=== PATIENT | male | born 1950 | race Caucasian/White ===

== ENCOUNTER 2016-10-04 08:56 | Day surgery (SDC) | payer MEDICARE ==
[~2016-10-04 08:56] MED LIST: PROPOFOL INJ 200 MG/20 ML VIAL IV ONE
[2016-10-04 10:37] VITALS: BP 135/84
--- NOTE | 2016-10-04 12:33 | Operative Report ---
Operative Report DATE OF SURGERY: 10/04/16 Operative Report: The risks, benefits and alternatives of the procedure including risks of bleeding, perforation requiring surgery are explained to the patient detail and informed consent is obtained. Patient is placed in a left, lateral decubital position. A rectal examination was done which did not reveal any masses tears or fissures. Timeout is called. Propofol medications administered. An Olympus videoscope was inserted into the patient's rectum. Scope was then gradually advanced all the way to cecum. The cecum was identified by the usual anatomical landmarks of the ileocecal valve as well as the appendiceal office. Photodocumentation was obtained. Prep is good. The scope was then sequentially pulled back via the various segments of the colon including the ascending colon, hepatic flexure, transverse colon, splenic flexure, descending colon and finally into the rectosigmoid portions of the colon. Retroflexion maneuvers performed. PREOPERATIVE DIAGNOSIS: Colorectal cancer screening. POSTOPERATIVE DIAGNOSIS: Colon polyp in the sigmoid area, removed via snare polypectomy, polyp retrieved. Diverticulosis without any evidence of diverticulitis, mainly located in the left side of the colon. Internal hemorrhoids OPERATION: Colonoscopy with snare polypectomy SURGEON: ADAM HAYNES ANESTHESIA: LMAC TISSUE REMOVED OR ALTERED: Polyp retrieved. COMPLICATIONS: None. ESTIMATED BLOOD LOSS: none. INTRAOPERATIVE FINDINGS: As described above. PROCEDURE: Patient tolerated the procedure well. No immediate postprocedure complications are noted. Patient is discharged in good condition. Discharge date 10/04/2016. Discharge diet: Regular. Discharge activity: Regular. Five-year surveillance for next colonoscopy We'll wait for biopsies Patient is instructed to call the office or proceed to the emergency room should there be any further problems or questions. Patient does have a 2-3 week follow-up to discuss findings.
== END 2016-10-04 10:40 | disposition home or self-care (01) ==
LOC: END 08:56
PROVIDERS: ATTEND Internal Medicine Gastroenterology
PROC: 0DBN8ZX Excision of Sigmoid Colon, Via Natural or Artificial Opening Endoscopic, Diagnostic (ICD-10-PCS; principal; 2016-10-04 11:00)
DX: Z12.11 Encounter for screening for malignant neoplasm of colon (principal); Z12.12 Encounter for screening for malignant neoplasm of rectum; K57.30 Diverticulosis of large intestine without perforation or abscess without bleeding; D12.5 Benign neoplasm of sigmoid colon; K64.8 Other hemorrhoids; E78.00 Pure hypercholesterolemia, unspecified; I10 Essential (primary) hypertension; E11.40 Type 2 diabetes mellitus with diabetic neuropathy, unspecified; I25.10 Atherosclerotic heart disease of native coronary artery without angina pectoris; I25.2 Old myocardial infarction; Z79.02 Long term (current) use of antithrombotics/antiplatelets; Z98.61 Coronary angioplasty status; Z79.82 Long term (current) use of aspirin; Z79.899 Other long term (current) drug therapy; Z79.84 Long term (current) use of oral hypoglycemic drugs
CPT/HCPCS: 45385; 82962; 88305 ×2; J2704; 810

== ENCOUNTER → 2016-10-26 | Outpatient (CLI) | payer MEDICARE ==
[2016-10-26 11:36] LABS: ALANINE AMINOTRANSFERASE 57 U/L (21-72); ALBUMIN 4.5 g/dL (3.5-5.0); ALKALINE PHOSPHATASE 63 U/L (38-126); ANION GAP 12 (5-19); ASPARTATE AMINO TRANSFERASE 24 U/L (17-59); BILIRUBIN,DIRECT 0.1 mg/dL (0.0-0.4); BILIRUBIN,TOTAL 0.4 mg/dL (0.2-1.3); BLOOD UREA NITROGEN 31 mg/dL (7-20); CALCIUM 10.1 mg/dL (8.4-10.2); CARBON DIOXIDE 27 mmol/L (22-30); CHLORIDE 106 mmol/L (98-107); CREATININE RESULT 0.72 mg/dL (0.52-1.25); Direct HDL 41 mg/dL (>40); GLUCOSE 100 mg/dL (75-110); POTASSIUM 4.8 mmol/L (3.6-5.0); SODIUM 144.5 mmol/L (137-145); TRIGLYCERIDES 118 mg/dL (<150)
[2016-10-26 11:50] LABS: DIRECT LDL 47 mg/dL (<100)
== END ==
LOC: OD 10:11
PROVIDERS: ATTEND Internal Medicine
DX: I25.119 Atherosclerotic heart disease of native coronary artery with unspecified angina pectoris (principal); Z98.61 Coronary angioplasty status; E11.9 Type 2 diabetes mellitus without complications; E78.4 Other hyperlipidemia; I10 Essential (primary) hypertension; Z79.899 Other long term (current) drug therapy; I25.2 Old myocardial infarction
CPT/HCPCS: 36415; 80053; 80061; 83036

== ENCOUNTER → 2016-11-10 | Outpatient (CLI) | payer MEDICARE | LOC: SP 14:57 | PROVIDERS: ATTEND Specialist | DX: G45.9 Transient cerebral ischemic attack, unspecified (principal) | CPT/HCPCS: 93880 ==

== ENCOUNTER 2017-11-24 20:08 | Emergency (ER) | payer MEDICARE ==
[2017-11-24] MEDS ORDERED: DIPH/PERTUSS(ACELL)/TETANUS VAC/PF 0.5 ML SYR (>=10YO) IM ONE (20:22)
--- NOTE | 2017-11-24 20:24 | ER Document Report ---
ED Medical Screen (RME) - General Chief Complaint: Fall Injury Stated Complaint: FALL Time Seen by Provider: 11/24/17 20:20 Notes: RAPID MEDICAL EVALUATION DISCLOSURE I have seen this patient as part of a Rapid Medical Evaluation and, if applicable, placed any initially appropriate orders. The patient will be seen and fully evaluated, including a full history and physical exam, by a provider ( in Main ED or Fast Track) when a room becomes available. 67-year-old male seen very briefly in PIT, status post fall approximately 8 feet high, hit left side of his head, does not know if he lost consciousness. Scraped up his right knee as well. He is on Plavix. Taken to head CT immediately. TRAVEL OUTSIDE OF THE [place] IN LAST 30 DAYS: No - Related Data Allergies/Adverse Reactions: No Known Allergies Allergy (Verified 10/04/16 09:00) Past Medical History - Past Medical History Cardiac Medical History: Reports: Hx Coronary Artery Disease, Hx Heart Attack - 9 stents , Hx Hypertension Pulmonary Medical History: Denies: Hx Asthma, Hx Bronchitis, Hx COPD, Hx Pneumonia Neurological Medical History: Denies: Hx Cerebrovascular Accident, Hx Seizures Musculoskeltal Medical History: Denies Hx Arthritis - Possible start of arthritis in right wrist - Immunizations Hx Diphtheria, Pertussis, Tetanus Vaccination: No Physical Exam - Vital signs Vitals: Temp Pulse Resp BP Pulse Ox 97.5 F 68 16 135/79 H 97 11/24/17 20:19 11/24/17 20:19 11/24/17 20:19 11/24/17 20:19 11/24/17 20:19 Course - Vital Signs Vital signs: Temp Pulse Resp BP Pulse Ox 97.5 F 68 16 135/79 H 97 11/24/17 20:19 11/24/17 20:19 11/24/17 20:19 11/24/17 20:19 11/24/17 20:19
[2017-11-24] MEDS ORDERED: ONDANSETRON HCL INJ/PF 4 MG/2 ML SDV IV ONE (20:57)
--- NOTE | 2017-11-24 20:58 | ER Document Report ---
ED Fall - General Mode of Arrival: Ambulatory Information source: Patient TRAVEL OUTSIDE OF THE [place] IN LAST 30 DAYS: No <SARBJIT MCKEON - Last Filed: 11/24/17 22:49> <MITCHELL AHUJA - Last Filed: 11/25/17 01:23> - General Chief Complaint: Fall Injury Stated Complaint: FALL Time Seen by Provider: 11/24/17 20:20 Notes: Patient is a 67-year-old male who presents to the emergency department today with complaints of "falling from a roof" that was approximately 8 feet tall just prior to arrival. Patient states "the entire roof came down". Patient is on Plavix. Patient only complains of right knee pain. Patient states he has vomited 3 times since the accident, but states he does not feel nauseated currently. Patient denies any loss of consciousness, neck pain, back pain, nausea currently, abdominal pain, or chest pain. C-collar in place. (SARBJIT MCKEON) - Related data Allergies/Adverse Reactions: No Known Allergies Allergy (Verified 10/04/16 09:00) Past Medical History - General Information source: Patient - Social History Smoking Status: Unknown if Ever Smoked Cigarette use (# per day): No Frequency of alcohol use: None Drug Abuse: None Lives with: Family Family History: Reviewed & Not Pertinent - Past Medical History Cardiac Medical History: Reports: Hx Coronary Artery Disease, Hx Heart Attack - 9 stents , Hx Hypertension Endocrine Medical History: Reports: Hx Diabetes Mellitus Type 2 Musculoskeltal Medical History: Comment Only Hx Arthritis - Possible start of arthritis in right wrist Past Surgical History: Reports: Hx Cardiac Catheterization - Immunizations Hx Diphtheria, Pertussis, Tetanus Vaccination: No Hx Pneumococcal Vaccination: 09/01/16 <SARBJIT MCKEON - Last Filed: 11/24/17 22:49> Review of Systems - Review of Systems Constitutional: No symptoms reported EENT: No symptoms reported Cardiovascular: denies: Chest pain Respiratory: No symptoms reported Gastrointestinal: See HPI, Vomiting. denies: Abdominal pain, Nausea Genitourinary: No symptoms reported Male Genitourinary: No symptoms reported Musculoskeletal: See HPI, Joint pain - right knee. denies: Back pain, Neck pain Skin: No symptoms reported Hematologic/Lymphatic: No symptoms reported Neurological/Psychological: denies: Lost consciousness -: Yes All other systems reviewed and negative <SARBJIT MCKEON - Last Filed: 11/24/17 22:49> Physical Exam - Vital signs Interpretation: Normal - General General appearance: Appears well, Alert - HEENT Head: Normocephalic, Atraumatic Eyes: Normal Pupils: PERRL Neck: Other - c collar in place - Respiratory Respiratory status: No respiratory distress Chest status: Nontender Breath sounds: Normal Chest palpation: Normal - Cardiovascular Rhythm: Regular Heart sounds: Normal auscultation Murmur: No - Abdominal Inspection: Normal Distension: No distension Bowel sounds: Normal Tenderness: Nontender Organomegaly: No organomegaly - Back Back: Normal, Nontender - Extremities General upper extremity: Normal inspection, Nontender, Normal color, Normal ROM , Normal temperature General lower extremity: Tender, Normal color, Normal ROM, Normal temperature, Normal weight bearing. No: Taya's sign Knee: Abrasion - R knee - Neurological Neuro grossly intact: Yes Cognition: Normal Orientation: AAOx4 Jody Coma Scale Eye Opening: Spontaneous Agate Coma Scale Verbal: Oriented Jody Coma Scale Motor: Obeys Commands Agate Coma Scale Total: 15 Speech: Normal Motor strength normal: LUE, RUE, LLE, RLE Sensory: Normal - Psychological Associated symptoms: Normal affect, Normal mood - Skin Skin Temperature: Warm Skin Moisture: Dry Skin Color: Normal <MITCHELL AHUJA - Last Filed: 11/25/17 01:23> - Vital signs Vitals: Temp Pulse Resp BP Pulse Ox 97.5 F 68 16 135/79 H 97 11/24/17 20:19 11/24/17 20:19 11/24/17 20:19 11/24/17 20:19 11/24/17 20:19 Course - Laboratory Result Diagrams: 11/24/17 20:52 11/24/17 20:52 <SARBJIT MCKEON - Last Filed: 11/24/17 22:49> - Laboratory Result Diagrams: 11/24/17 20:52 11/24/17 20:52 - Diagnostic Test Radiology reviewed: Reports reviewed <MITCHELL AHUJA - Last Filed: 11/25/17 01:23> - Re-evaluation Re-evalutation: 11/25/17 Patient had a fall through roof. He is on Plavix. Denies headache, neck pain, back pain, chest pain, abdominal pain or upper extremity pain. Denies any pain to his left lower extremity. He has an abrasion to his right knee with full range of motion and a normal x-ray. No findings on CT of head or cervical spine. Patient feels well and would like to go home. He will be given a prescription for pain medication as needed. He is to follow-up with his doctor. He has had his tetanus shot updated. No evidence for sutures at this time. Return immediately if any worsening or concerning symptoms. Understands and agrees with plan. Stable for discharge. (MITCHELL AHUJA) - Vital Signs Vital signs: Temp Pulse Resp BP Pulse Ox 97.6 F 68 20 137/85 H 96 11/24/17 23:15 11/24/17 20:19 11/24/17 23:11 11/24/17 23:12 11/24/17 23:12 - Laboratory Laboratory results interpreted by me: 11/24/17 11/24/17 20:52 20:52 WBC 14.3 H Absolute Neutrophils 10.8 H BUN 25 H Glucose 145 H Calcium 10.9 H Discharge <SARBJIT MCKEON - Last Filed: 11/24/17 22:49> <MITCHELL AHUJA - Last Filed: 11/25/17 01:23> - Discharge Clinical Impression: Contusion of knee, right Qualifiers: Encounter type: initial encounter Qualified Code(s): S80.01XA - Contusion of right knee, initial encounter Head injury Qualifiers: Encounter type: initial encounter Qualified Code(s): S09.90XA - Unspecified injury of head, initial encounter Abrasion of knee, right Qualifiers: Encounter type: initial encounter Qualified Code(s): S80.211A - Abrasion, right knee, initial encounter Condition: Stable Disposition: HOME, SELF-CARE Instructions: Abrasions ([facility]), Contusion ([facility]), Head Injury Precautions ([facility]) Prescriptions: Oxycodone HCl/Acetaminophen [Percocet 5-325 mg Tablet] 1 - 2 tab PO Q4H PRN #15 tablet PRN Reason: Scribe Attestation: 11/25/17 01:23 I personally performed the services described in the documentation, reviewed and edited the documentation which was dictated to the scribe in my presence, and it accurately records my words and actions. (MITCHELL AHUJA) Scribe Documentation - Scribe Written by Juan:: Juan Francisco, [id number] acting as scribe for :: Keyonna <SARBJIT MCKEON - Last Filed: 11/24/17 22:49>
--- NOTE | 2017-11-24 21:03 | RADIOLOGY REPORT (SQ) ---
EXAM DESCRIPTION: CT HEAD WITHOUT COMPLETED DATE/TIME: 11/24/2017 8:47 pm REASON FOR STUDY: fell 8 feet; on blood thinners; eval bleed COMPARISON: None. TECHNIQUE: Axial images acquired through the brain without intravenous contrast. Images reviewed wi th bone, brain and subdural windows. Images stored on PACS. All CT scanners at this facility use dose modulation, iterative reconstruction, and/or weight based d osing when appropriate to reduce radiation dose to as low as reasonably achievable (ALARA). [facility]: Dose Right [facility]: CareDose [facility]: Dose Right [facility]: Teradose 4D [facility]: Smart [employer] RADIATION DOSE: CT Rad equipment meets quality standard of care and radiation dose reduction techniq ues were employed. CTDIvol: 53.2 mGy. DLP: 991 mGy-cm. mGy. LIMITATIONS: None. FINDINGS: VENTRICLES: Normal size and contour. CEREBRUM: No masses. No hemorrhage. No midline shift. No evidence for acute infarction. Normal gra y/white matter differentiation. No areas of low density in the white matter. CEREBELLUM: No masses. No hemorrhage. No alteration of density. No evidence for acute infarction. EXTRAAXIAL SPACES: No fluid collections. No masses. ORBITS AND GLOBE: No intra- or extraconal masses. Normal contour of globe without masses. CALVARIUM: No fracture. PARANASAL SINUSES: No fluid or mucosal thickening. SOFT TISSUES: No mass or hematoma. OTHER: No other significant finding. IMPRESSION: No acute intracranial findings. EVIDENCE OF ACUTE STROKE: NO. COMMENT: Quality ID # [id number]: Final reports with documentation of one or more dose reduction techniques (e.g., Automated exposure control, adjustment of the mA and/or kV according to patient size, use of iterative reconstruction technique) TECHNICAL DOCUMENTATION: JOB ID: [id number] [place]-72 2010 [employer]- All Rights Reserved Reading location - IP/workstation name: [employer]
[2017-11-24 21:05] LABS: ABSOLUTE LYMPHOCYTES (AUTO) 2.2 10^3/uL (0.5-4.7); ABSOLUTE MONOCYTES (AUTO) 1.2 10^3/uL (0.1-1.4); ABSOLUTE NEUT (AUTO) 10.8 10^3/uL (1.7-8.2); BASOPHILS % (AUTO) 0.3 % (0-2); EOSINOPHILS % (AUTO) 0.3 % (0-6); HEMATOCRIT 42.5 % (37.9-51.0); HEMOGLOBIN 14.3 g/dL (13.5-17.0); LYMPHOCYTES % (AUTO) 15.2 % (13-45); MEAN CORPUSCULAR HGB CONC 33.7 g/dL (32.0-36.0); MEAN CORPUSCULAR VOLUME 95 fl (80-97); MONOCYTES % (AUTO) 8.7 % (3-13); PLATELET COUNT 239 10^3/uL (150-450); RED BLOOD COUNT 4.48 10^6/uL (4.35-5.55); RED CELL DISTRIBUTION WIDTH 13.7 % (11.5-14.0); SEGMENTED NEUTROPHILS % (AUTO) 75.5 % (42-78); TOTAL CELLS COUNTED % (AUTO) 100 %; WHITE BLOOD COUNT 14.3 10^3/uL (4.0-10.5)
[2017-11-24 21:10] LABS: INTERNATIONAL RATION (INR) 1.05; PROTHROMBIN TIME 14.2 SEC (11.4-15.4)
[2017-11-24 21:11] LABS: PARTIAL THROMBOPLASTIN TIME 26.6 SEC (23.5-35.8)
--- NOTE | 2017-11-24 21:11 | RADIOLOGY REPORT (SQ) ---
EXAM DESCRIPTION: KNEE RIGHT 3 VIEWS COMPLETED DATE/TIME: 11/24/2017 8:41 pm REASON FOR STUDY: fell 8 feet COMPARISON: None. NUMBER OF VIEWS: Three views. TECHNIQUE: AP, lateral, and sunrise patella radiographic images acquired of the right knee. LIMITATIONS: None. FINDINGS: MINERALIZATION: Normal. BONES: No acute fracture or dislocation. No worrisome bone lesions. JOINT: No effusion. SOFT TISSUES: No soft tissue swelling. No radio-opaque foreign body. OTHER: No other significant finding. IMPRESSION: NO RADIOGRAPHIC EVIDENCE OF ACUTE INJURY. TECHNICAL DOCUMENTATION: JOB ID: [id number] [place]-72 2010 [employer]- All Rights Reserved Reading location - IP/workstation name: [email or web address]
--- NOTE | 2017-11-24 21:18 | RADIOLOGY REPORT (SQ) ---
EXAM DESCRIPTION: CT CERVICAL SPINE WITHOUT COMPLETED DATE/TIME: 11/24/2017 8:47 pm REASON FOR STUDY: fell 8 feet COMPARISON: None. TECHNIQUE: Axial images acquired through the cervical spine without intravenous contrast. Images re viewed with lung, soft tissue and bone windows. Reconstructed coronal and sagittal MPR images review ed. Images stored on PACS. All CT scanners at this facility use dose modulation, iterative reconstruction, and/or weight based d osing when appropriate to reduce radiation dose to as low as reasonably achievable (ALARA). [facility]: Dose Right [facility]: CareDose [facility]: Dose Right [facility]: Teradose 4D [facility]: Smart [employer] RADIATION DOSE: CT Rad equipment meets quality standard of care and radiation dose reduction techniq ues were employed. CTDIvol: 19.6 mGy. DLP: 473 mGy-cm. mGy. LIMITATIONS: None. FINDINGS: ALIGNMENT: Anatomic. MINERALIZATION: Normal. VERTEBRAL BODIES: No fractures or dislocation. DISCS: Multilevel disc space narrowing with osteophytes. FACETS, LATERAL MASSES, POSTERIOR ELEMENTS: Facet arthropathy. No fractures. No dislocation. No ac tangirnaq findings. HARDWARE: None in the spine. VISUALIZED RIBS: No fractures. LUNG APICES AND SOFT TISSUES: No significant or acute findings. OTHER: No other significant finding. IMPRESSION: CHRONIC DEGENERATIVE CHANGES. NO ACUTE FINDINGS. TECHNICAL DOCUMENTATION: JOB ID: [id number] [place]-72 Quality ID # [id number]: Final reports with documentation of one or more dose reduction techniques (e.g., Au tomated exposure control, adjustment of the mA and/or kV according to patient size, use of iterative reconstruction technique) 2010 [employer]- All Rights Reserved Reading location - IP/workstation name: [email or web address]
[2017-11-24 21:25] LABS: ALANINE AMINOTRANSFERASE 46 U/L (21-72); ALBUMIN 4.7 g/dL (3.5-5.0); ALKALINE PHOSPHATASE 77 U/L (38-126); ANION GAP 16 (5-19); ASPARTATE AMINO TRANSFERASE 23 U/L (17-59); BILIRUBIN,DIRECT 0.3 mg/dL (0.0-0.4); BILIRUBIN,TOTAL 0.4 mg/dL (0.2-1.3); BLOOD UREA NITROGEN 25 mg/dL (7-20); CALCIUM 10.9 mg/dL (8.4-10.2); CARBON DIOXIDE 26 mmol/L (22-30); CHLORIDE 103 mmol/L (98-107); GLUCOSE 145 mg/dL (75-110); POTASSIUM 4.7 mmol/L (3.6-5.0); SODIUM 144.7 mmol/L (137-145); TOTAL PROTEIN 7.6 g/dL (6.3-8.2)
[2017-11-24] MEDS ORDERED: OXYCODONE-ACETAMINOPHEN 5-325 MG TABLET PO ONE (22:10)
[2017-11-24 23:15] VITALS: BP 137/85
== END 2017-11-24 23:20 | disposition home or self-care (01) ==
LOC: ER 20:08
DX: S80.01XA Contusion of right knee, initial encounter (principal); S09.90XA Unspecified injury of head, initial encounter; S80.211A Abrasion, right knee, initial encounter; M25.561 Pain in right knee; R11.10 Vomiting, unspecified; W13.2XXA Fall from, out of or through roof, initial encounter; Z79.02 Long term (current) use of antithrombotics/antiplatelets; I25.10 Atherosclerotic heart disease of native coronary artery without angina pectoris; I25.2 Old myocardial infarction; I10 Essential (primary) hypertension; E11.9 Type 2 diabetes mellitus without complications
CPT/HCPCS: 99284; 96374; 36415; 85025; 85610; 85730; 80053; 73562; 70450; 72125; L0120; A9270; J2405

== ENCOUNTER → 2018-04-07 | Outpatient (CLI) | payer MEDICARE ==
[2018-04-07 09:27] LABS: CHOLESTEROL 112.58 mg/dL (0-200); TRIGLYCERIDES 123 mg/dL (<150)
[2018-04-07 09:37] LABS: DIRECT LDL 48 mg/dL (<100)
== END ==
LOC: OD 08:24
PROVIDERS: ATTEND Internal Medicine
DX: I25.118 Atherosclerotic heart disease of native coronary artery with other forms of angina pectoris (principal); Z98.61 Coronary angioplasty status; E78.4 Other hyperlipidemia; I10 Essential (primary) hypertension; E03.9 Hypothyroidism, unspecified; E11.9 Type 2 diabetes mellitus without complications; G45.9 Transient cerebral ischemic attack, unspecified; I25.2 Old myocardial infarction; Z79.899 Other long term (current) drug therapy
CPT/HCPCS: 36415; 80061

== ENCOUNTER → 2019-06-08 | Outpatient (CLI) | payer MEDICARE ==
[2019-06-08 10:07] LABS: ALBUMIN 4.5 g/dL (3.5-5.0); ALKALINE PHOSPHATASE 64 U/L (38-126); ANION GAP 10 (5-19); ASPARTATE AMINO TRANSFERASE 17 U/L (17-59); BILIRUBIN,DIRECT 0.1 mg/dL (0.0-0.4); BILIRUBIN,TOTAL 0.3 mg/dL (0.2-1.3); BLOOD UREA NITROGEN 28 mg/dL (7-20); CALCIUM 10.1 mg/dL (8.4-10.2); CARBON DIOXIDE 27 mmol/L (22-30); CHLORIDE 104 mmol/L (98-107); CHOLESTEROL 98.88 mg/dL (0-200); GLUCOSE 125 mg/dL (75-110); POTASSIUM 4.4 mmol/L (3.6-5.0); TOTAL PROTEIN 7.2 g/dL (6.3-8.2); TRIGLYCERIDES 99 mg/dL (<150)
[2019-06-08 10:30] LABS: DIRECT LDL 46 mg/dL (<100)
== END ==
LOC: OD 08:50
PROVIDERS: ATTEND Internal Medicine
DX: I25.119 Atherosclerotic heart disease of native coronary artery with unspecified angina pectoris (principal); Z98.61 Coronary angioplasty status; I25.2 Old myocardial infarction; G45.9 Transient cerebral ischemic attack, unspecified; I10 Essential (primary) hypertension; E03.9 Hypothyroidism, unspecified; E11.9 Type 2 diabetes mellitus without complications; Z79.899 Other long term (current) drug therapy; E78.5 Hyperlipidemia, unspecified
CPT/HCPCS: 36415; 80053; 80061

== ENCOUNTER → 2019-10-11 | Outpatient (CLI) | payer MEDICARE | LOC: OD 11:29 | PROVIDERS: ATTEND Specialist | DX: I25.118 Atherosclerotic heart disease of native coronary artery with other forms of angina pectoris (principal); Z98.61 Coronary angioplasty status; E11.9 Type 2 diabetes mellitus without complications; I25.2 Old myocardial infarction; G45.9 Transient cerebral ischemic attack, unspecified; E78.49 Other hyperlipidemia; E03.9 Hypothyroidism, unspecified; R01.1 Cardiac murmur, unspecified; Z79.899 Other long term (current) drug therapy | CPT/HCPCS: 36415; 83036 ==